=== PATIENT | female | born 2000 | race Caucasian/White ===

== ENCOUNTER 2024-03-05 03:13 | Emergency (ER) | payer OTHER, BC, SELFPAY ==
[2024-03-05 03:14] VITALS: BP 105/77; PULSE 71; RESP 16; TEMP 36.4; O2SAT 100; BMI 22.5
--- NOTE | 2024-03-05 04:07 | ED.VIS.FEGU ---
HPI HPI - Female History of Present Illness Chief Complaint: Vag Bleeding Informant: patient Narrative Narrative: Patient is a G0, P0 23-year-old female with past medical history of bipolar disorder. She states that on Tuesday she had rough sex. She states that on Tuesday she then noticed a small amount of vaginal bleeding but reports it was not time for her menstrual cycle. She denies any discharge or concern for STD but reports that she had concerned that a condom may have been stuck up there. She states that Tuesday night into Tuesday morning she was able to remove the condom but then after doing so there was an increase in bleeding and so she presents for evaluation. Patient denies any history of bleeding disorder or blood thinner use [facility] Medical History (Updated 03/06/24 @ 22:[address] Alli Tomas, DO) Bipolar II disorder Home Medications ?Medication ?Instructions ?Recorded ?Last Taken ?Type lamotrigine 25 mg tablet (Lamictal) 25 mg PO DAILY 03/05/24 Unknown History Allergy/AdvReac Type Severity Reaction Status Date / Time No Known Allergies Allergy Verified 03/05/24 19:25 Social History Smoking Status: Current some day smoker tobacco type: e-cigarettes ROS ROS ED Constitutional Constitutional ED: Denies chills or fever(s) ENT ENT ED: Denies sore throat Cardiovascular Cardiovascular: Denies chest pain Respiratory/Chest Respiratory/Chest: Denies cough or dyspnea Gastrointestinal Gastrointestinal: Denies abdominal pain, diarrhea, nausea or vomiting Genitourinary Genitourinary ED: Reports other Details: Positive vaginal bleeding ; Denies dysuria or urinary frequency Musculoskeletal Musculoskeletal: Denies myalgias Integumentary Denies rash Neurologic Neurologic: Denies headache(s) Hematologic/Lymphatic Hematologic/Lymphatic: Denies easy bleeding or easy bruising EXAM Physical Exam Const Vital Signs: 03/05/24 03:14 Temperature 97.6 F L Temperature Source Oral Pulse Rate 71 Respiratory Rate 16 Blood Pressure 105/77 Blood Pressure Mean 86 Pulse Ox 100 Positive well nourished and well developed General Appearance ED: well developed; Negative for pallor HEENT HEENT Narrative: Normocephalic atraumatic Eyes PERRL and EOMs intact bilaterally General Eye ED: Negative for pale conjunctiva Neck supple Resp normal respiratory effort and clear to auscultation bilaterally Cardio regular rate and regular rhythm GI normal to inspection, nondistended, normoactive bowel sounds, soft to palpation, non-tender, non-distended and no masses Auscultation: normoactive bowel sounds Palpation: soft Narrative: Normal external vaginal tissue. No signs of a labial hematoma or laceration. Speculum exam reveals a scant amount of dark red blood in the vaginal vault less than half a shot glass full. There is no retained foreign body. No cervical laceration. Cervical os is closed. No adnexal masses or tenderness noted. Extremity normal to inspection and full ROM Neuro oriented x3, CN's II-XII intact bilaterally and no sensory deficits noted Sensorium / Orientation: alert Motor Exam: strength 5/5 throughout Psych mental status grossly normal Skin no rashes or lesions noted Skin Narrative: Capillary refill is less than 3 seconds General Skin Exam: Negative for jaundice or pallor MDM MDM MDM Narrative Medical decision making narrative: Patient presented to the ER with stable vitals. She denied any history of bleeding disorder or blood thinner use. She states that the bleeding began roughly 12 hours to 1 day after her sexual activity. There is concern for potential labial hematoma labial laceration cervical laceration or potential infection due to retained foreign body. The patient states that she was able to remove the condom and that it had only been in there for roughly 24 hours. On exam I was able to confirm that there is no retained foreign body and without fever or discharge concern for infection is low and I do not feel there is need for workup regarding this. We did discuss potential Plan B administration as it appears the sexual prophylaxis failed. Patient states she has low concern for this and does not want treatment. She also denies any concern for STD and is not want checked for this. As she is not having profuse bleeding she is low concern for or infection and there is no signs of cervical or vaginal laceration I do not feel there is need for further workup and patient is otherwise safe for discharge. History & Record Review Discussion w/independent historian: Patient Discharge Plan Triage Chief Complaint: Vag Bleeding ED Provider: Alli Tomas Dx/Rx/DC Orders Clinical Impression: DUB (dysfunctional uterine bleeding), Bipolar disorder Instructions: ED Dysfunctional Uterine Bleeding Prescriptions: No Action lamotrigine [Lamictal] 25 mg tablet 25 mg PO DAILY Primary Care Provider: Care Physician,No Primary Referrals: Care Physician,No Primary [Primary Care Provider] - Activity Restrictions/Additional Instructions: Please follow-up with SOIL FIELD TECHNICIAN for repeat evaluation and return to the ER should you have any further concerns Print Language: Swedish Disposition Disposition: Home, Self Care Discharge Date/Time: 03/05/24 04:09
[2024-03-05 04:08] VITALS: BP 101/52; PULSE 73; RESP 16; TEMP 36.5; O2SAT 99
== END 2024-03-05 04:09 | disposition home or self-care (01) ==
PROVIDERS: Emergency Provider Emergency Medicine; Visit Provider Emergency Medicine
DX: N93.8 Other specified abnormal uterine and vaginal bleeding (principal); F31.9 Bipolar disorder, unspecified; Z79.899 Other long term (current) drug therapy; F17.290 Nicotine dependence, other tobacco product, uncomplicated
CPT/HCPCS: 99282

== ENCOUNTER 2024-03-05 19:19 | Emergency (ER) | payer OTHER, BC, SELFPAY ==
[2024-03-05 19:21] VITALS: BP 117/74; PULSE 84; RESP 16; TEMP 36.8; O2SAT 94; BMI 20.9
--- NOTE | 2024-03-05 22:16 | ED.RN ---
Pt and her friend has approached the triage desk multiple times to ask where pt is in line to be seen. This RN has explained multiple times that pt's are seen based on acuity/severity of symptoms and an approximate place in line is given each time. Pt begins to stand at the desk area watching as pt's are checking in and being called back. Pt's friend began to yell asking is she going to be seen!!!! This RN again explained the process of being seen based on acuity. Pt's friend interrupts this RN as explanation is being provided again and puts her hand in this RN's face and storms away. Pt and her friend gather their belongings and LWBS.
== END 2024-03-05 22:15 | disposition left against medical advice (07) ==
LOC: ED 22:30
DX: N93.9 Abnormal uterine and vaginal bleeding, unspecified (principal)

== ENCOUNTER 2024-03-07 11:21 | Emergency (ER) | payer OTHER, BC, SELFPAY ==
[2024-03-07 11:22] VITALS: BP 123/68; PULSE 87; RESP 16; TEMP 36.2; O2SAT 98; BMI 21.2
[2024-03-07 13:28] VITALS: BP 115/74; PULSE 74; RESP 16; O2SAT 100
--- NOTE | 2024-03-07 13:46 | RAD_ITS ---
STUDY: X-RAY CHEST REASON FOR EXAM: Female, 23 years old. Chest pain TECHNIQUE: Single AP portable view of the chest. COMPARISON: None. FINDINGS: EKG electrodes are seen. The lungs are clear and expanded. There is no demonstrated pleural abnormality. Normal size heart. Normal mediastinum and gianna. Normal visualized pulmonary arteries. Normal visualized aortic arch and descending thoracic aorta. Normal visualized thoracic spine. Normal visualized ribs, clavicles, and shoulders. There is no demonstrated abnormality of the visualized soft tissue structures of the upper abdomen. RAD/Chest 1 View (Portable) IMPRESSION: Normal x-ray examination of the chest. Electronically Signed: Theron Saul MD at 14:01 EST ,
--- NOTE | 2024-03-07 13:47 | EKG12_ITS ---
Test Reason : CP Blood Pressure : */* mmHG Vent. Rate : 81 BPM Atrial Rate : 81 BPM P-R Int : 156 ms QRS Dur : 92 ms QT Int : 364 ms P-R-T Axes : 67 80 54 degrees QTcB Int : 422 ms Normal sinus rhythm Normal ECG Confirmed by LALI CURTIS, WILI ([id number]), purchase request editor MALIK PORRAS ([id number]) on 03/14/2024 2:10:45 P M Referred By: Confirmed By: WILI ESCALERA MD
--- NOTE | 2024-03-07 13:48 | EDS_ITS ---
HPI HPI - Female History of Present Illness Chief Complaint: Vag Bleeding Informant: patient Narrative Narrative: 23-year-old female presenting to the emergency room with a primary chief complaint of vaginal bleeding but also skin discoloration chest pain fatigue diarrhea. Patient states that she was recently seen in the emergency department and then by COOLER SERVICE SUPERVISOR for vaginal bleeding. She notes that a few months ago she had 3 periods in 1 month. Typically she is very irregular. She menstruated in the end of January and again started several days ago. This started after she had sexual intercourse neurovascular found out at a later. She had been seen by COOLER SERVICE SUPERVISOR through the [facility] and states that she had a negative pelvic examination. She states that she continues to have bleeding. She states that she feels generally fatigued. She had been taking NyQuil, DayQuil few weeks ago for a cold. She has been experiencing some diarrhea upper abdominal discomfort. No reported fever recently. She states that she called her COOLER SERVICE SUPERVISOR and they recommended that she come back to emergency for blood work. She notes that she had an EKG over the summertime with her primary care doctor that was not normal but is not sure exactly what was wrong as she could not go back due to financial reasons. She is unsure if she is passing blood in the urine or vaginally. [facility] Medical History Bipolar II disorder Home Medications ?Medication ?Instructions ?Recorded ?Last Taken ?Type lamotrigine 25 mg tablet (Lamictal) 25 mg PO DAILY 03/05/24 Unknown History Allergy/AdvReac Type Severity Reaction Status Date / Time No Known Allergies Allergy Verified 03/07/24 11:25 Social History Smoking Status: Current some day smoker tobacco type: e-cigarettes ROS ROS ED Constitutional Constitutional ED: Reports other Details: Fatigue ; Denies chills, fever(s) or weight loss Eyes Eyes: Denies change in vision or diplopia ENT ENT ED: Denies ear pain, rhinorrhea or sore throat Cardiovascular Cardiovascular: Reports chest pain; Denies orthopnea, palpitations or racing heartbeat Respiratory/Chest Respiratory/Chest: Denies cough, dyspnea or orthopnea Gastrointestinal Gastrointestinal: Reports abdominal pain and diarrhea; Denies nausea or vomiting Genitourinary Genitourinary ED: Reports hematuria and other Details: Vaginal bleeding ; Denies dysuria or urinary frequency Musculoskeletal Musculoskeletal: Denies arthralgias or myalgias Integumentary Reports other Details: Patient reports yellowish skin ; Denies abscess or rash Neurologic Neurologic: Denies headache(s) or weakness Psychiatric Psychiatric: Denies anxiety, depression, suicidal ideation or suicidal thoughts Endocrine Endocrinology: Denies polydipsia, polyphagia or polyuria Allergic/Immunologic Allergic/Immunologic ED: Denies mouth swelling, tongue swelling or urticaria EXAM Physical Exam Const Vital Signs: 03/07/24 11:22 03/07/24 13:28 03/07/24 15:00 Temperature 97.2 F L Temperature Source Temporal Pulse Rate 87 74 79 Respiratory Rate 16 16 16 Blood Pressure 123/68 H 115/74 115/74 Blood Pressure Mean 86 87 87 Pulse Ox 98 100 100 Oxygen Delivery Method Room Air Room Air Room Air 03/07/24 16:51 Temperature 97.8 F Temperature Source Pulse Rate 72 Respiratory Rate 18 Blood Pressure 116/72 Blood Pressure Mean 86 Pulse Ox 99 Oxygen Delivery Method Positive well nourished and well developed General Appearance ED: well developed and NAD HEENT Reports normocephalic, head/scalp atraumatic and moist mucous membranes Eyes PERRL and EOMs intact bilaterally General Eye ED: Negative for pale conjunctiva or scleral icterus Neck no lymphadenopathy, supple and no JVD Resp normal respiratory effort and clear to auscultation bilaterally Cardio regular rate, regular rhythm and no murmurs GI normal to inspection, nondistended, normoactive bowel sounds and non-tender Auscultation: normoactive bowel sounds Palpation: soft; Negative for tender, guarding, rigid, hepatomegaly or splenomegaly Back/Spine no CVA tenderness and normal ROM Extremity normal to inspection General Extremety ED: Negative for edema General Extremity: Negative for edema Neuro oriented x3 and CN's II-XII intact bilaterally Sensorium / Orientation: alert Motor Exam: strength 5/5 throughout Psych mental status grossly normal Mood & Affect: Negative for depressed or tearful Skin no rashes or lesions noted and no wounds MDM MDM MDM Narrative Medical decision making narrative: Differential diagnosis includes anemia liver dysfunction acute coronary syndrome pericarditis myocarditis hematuria causes like ureterolithiasis UTI Cath urine specimen was normal. Hemoglobin is 11.2 with normal platelet count and white count. MCV is 90.7. Normal coags. No LFT dysfunction test is negative. EKG is normal sinus rhythm my independent interpretation of the chest x-ray is no acute process normal mediastinal silhouette. Clinically I believe the patient to be stable. I do not have an old hemoglobin to compare to I do not believe that she is in need of a transfusion today. She is not tachycardic or hypotensive. I would recommend the patient follow-up with gynecology. History & Record Review Discussion w/independent historian: Patient Lab Data Attestation: I reviewed the patient's lab results. Labs: Laboratory Results - last 24 hr 03/07/24 03/07/24 13:26 15:14 WBC 9.7 RBC 3.78 L Hgb 11.2 L Hct 34.3 L MCV 90.7 MCH 29.6 MCHC 32.7 RDW Std Deviation 47.8 H RDW Coeff of Lennox 14.4 Plt Count 292 MPV 10.4 Immature Gran % (Auto) 0.300 Neut % (Auto) 76.1 H Lymph % (Auto) 8.9 L Gila % (Auto) 12.8 H Eos % (Auto) 1.2 Baso % (Auto) 0.7 Absolute Neuts (auto) 7.4 Absolute Lymphs (auto) 0.86 Nucleated RBC % 0 PT 14.2 INR 1.1 APTT 28.5 Sodium 141 Potassium 3.8 Chloride 109 H Carbon Dioxide 28.0 Anion Gap 4 L BUN 8 Creatinine 0.69 Estim Creat Clear Calc 124.79 Est GFR (MDRD) Af Amer 138 Est GFR (MDRD) Non-Af 114 BUN/Creatinine Ratio 11.6 Glucose 63 L Calcium 8.8 Total Bilirubin 0.30 Direct Bilirubin 0.14 AST 13 L ALT 18 Alkaline Phosphatase 65 Troponin I High Sens < 3 L Total Protein 6.9 Albumin 3.8 Globulin 3.1 Serum , Qual NEGATIVE Urine Color Yellow Urine Clarity Clear Urine pH 7.0 Ur Specific [place] 1.010 Urine Protein Negative Urine Glucose (UA) Normal Urine Ketones Negative Urine Occult Blood Negative Urine Nitrite Negative Urine Bilirubin Negative Urine Urobilinogen Normal Ur Leukocyte Esterase Negative Urine RBC 0 SEEN Urine WBC 0 SEEN Ur Squamous Epith Cells 0 SEEN Urine Bacteria 0 SEEN Urine Mucus 0 SEEN Radiography Diagnostic Testing: Clinical Impression(s) from Imaging Studies Chest X-Ray 03/07/24 13:46 IMPRESSION: Normal x-ray examination of the chest. Electronically Signed: Theron Saul MD at 14:01 EST , EKG Initial EKG: Attestation: I personally reviewed and interpreted this EKG as follows: Comments: Normal sinus rhythm ventricular rate of 81 bpm. Discharge Plan Triage Chief Complaint: Vag Bleeding ED Provider: Miles Gavin Dx/Rx/DC Orders Clinical Impression: Chest pain, DUB (dysfunctional uterine bleeding) Instructions: ED Chest Pain, Noncardiac, ED Dysfunctional Uterine Bleeding Prescriptions: No Action lamotrigine [Lamictal] 25 mg tablet 25 mg PO DAILY Primary Care Provider: Care Physician,No Primary Referrals: Brittney Sawyer MD [Med Staff - Active Staff] - As soon as possible Josefina Shepherd NP, INTERNAL MEDICINE NURSE PRACTITIONER-C [Non-Staff] - Print Language: Angolan Disposition Disposition: Home, Self Care Discharge Date/Time: 03/07/24 16:55
[2024-03-07 14:04] LABS: Absolute Lymphocyte Count 0.86 X10^3/uL (0.83-4.51); Absolute Neutrophil Count 7.4 X10^3/uL (2.0-7.7); Basophil# 0.07 X10^3/uL; Basophil% 0.7 % (0-1); Eosinophil# 0.12 X10^3/uL; Eosinophils% 1.2 % (0-5); Hematocrit 34.3 % (37-47); Hemoglobin 11.2 g/dL (12.0-15.0); Lymphocyte # 0.86 X10^3/ul (0.83-4.51); Lymphocyte % 8.9 % (19-41); Mean Corp Hgb Conc 32.7 g/dL (32-36); Mean Corpuscular Hgb 29.6 pg (27.0-32.0); Mean Corpuscular Volume 90.7 fL (81-99); Mean Platelet Vol. 10.4 fl (6.2-12.0); Monocyte# 1.24 X10^3/uL; Monocyte% 12.8 % (0-10); NRBC Flagged by Analyzer 0 % (0-5); Neutrophil # 7.36 X10^3/uL (2.7-7.7); Neutrophil % 76.1 % (47-70); Platelet Count 292 K/mm3 (150-450); RBC Distribution Width CV 14.4 % (11.6-14.6); RBC Distribution Width SD 47.8 fl (35.1-43.9); Red Blood Count 3.78 M/mm3 (4.2-5.4); White Blood Count 9.7 K/mm3 (4.4-11.0)
[2024-03-07 14:09] LABS: International Normalized Ratio 1.1; Prothrombin Time (Protime)PT. 14.2 SECONDS (11.7-14.9)
[2024-03-07 14:10] LABS: Partial Thromboplast Time 28.5 Seconds (24.1-36.2)
[2024-03-07 14:52] LABS: AST(SGOT) 13 U/L (15-37); Alanine Aminotransfer ALT/SGPT 18 U/L (13-56); Albumin, Serum 3.8 g/dL (3.2-5.0); Alkaline Phosphatase 65 U/L (45-117); Anion Gap 4 (5-15); BUN 8 mg/dL (7-18); BUN/Creat Ratio 11.6 RATIO (10-20); Bilirubin, Direct 0.14 mg/dL (0.00-0.30); Calcium,Total 8.8 mg/dL (8.5-10.1); Chloride 109 mmol/L (98-107); Creatinine, Serum 0.69 mg/dL (0.55-1.02); EST Glomerular Filtration Rate 114 mL/min (>60); Est Glom Filt Rate - Afr Amer 138 mL/min (>60); Estimated Creatinine Clearance 124.79 ml/min; Globulin 3.1 g/dL (2.2-4.2); Glucose 63 mg/dL (74-106); Potassium 3.8 mmol/L (3.5-5.1); Protein, Total 6.9 g/dL (6.4-8.2); Sodium Level 141 mmol/L (136-145); Troponin-I HS < 3 pg/mL (3.0-54.0)
[2024-03-07 14:57] LABS: Internal QC Validated? YES +Cl - CLEAR BKGD; Pregnancy, Serum, hCG Quali. NEGATIVE Negative
[2024-03-07 15:00] VITALS: BP 115/74; PULSE 79; RESP 16; O2SAT 100
[2024-03-07 15:19] LABS: Bacteria 0 SEEN /hpf (None Seen); Mucous, Urine 0 SEEN /hpf (<or=2+); Red Blood Cells-Urine 0 SEEN /hpf (0-5); Squamous Epithelial Cells - UA 0 SEEN /hpf (5-10); White Blood Cells 0 SEEN /hpf (0-5)
[2024-03-07 15:24] LABS: Color, Urine Yellow (Yellow); Glucose, Dipstick Normal (Normal); Ketone-Dipstick Negative (Negative); Leukocyte Esterase-Dipstick Negative /ul (Negative); Nitrite-Dipstick Negative (Negative); Occult Blood-Urine Negative /ul (Negative); Protein-Dipstick Negative (Negative); Urine Bilirubin Dipstick Negative (Negative); Urine Clarity Clear (Clear); Urine Urobilinogen Normal (Normal)
[2024-03-07 16:51] VITALS: BP 116/72; PULSE 72; RESP 18; TEMP 36.6; O2SAT 99
== END 2024-03-07 16:55 | disposition home or self-care (01) ==
PROVIDERS: Emergency Provider Emergency Medicine; Visit Provider Emergency Medicine
DX: R07.9 Chest pain, unspecified (principal); N93.8 Other specified abnormal uterine and vaginal bleeding; F17.290 Nicotine dependence, other tobacco product, uncomplicated
CPT/HCPCS: 71045; 80048; 80076; 81001; 84484; 84703; 85025; 85610; 85730; 93005; 99285; P9612; A4216

== ENCOUNTER 2024-04-22 01:13 | Emergency (ER) | payer OTHER, BC, SELFPAY ==
[2024-04-22 01:14] VITALS: BP 103/67; PULSE 82; RESP 18; TEMP 35.1; O2SAT 100; BMI 23.3
--- NOTE | 2024-04-22 01:48 | EX.ED.SAOD ---
HPI History of Present Illness Chief Complaint: ETOH Intox Informant: friend Limited: intoxicated Narrative Narrative: Patient is a 24-year-old female with reported history of bipolar disorder presenting for alcohol intoxication. Patient reportedly drank liquor tonight. She is intoxicated and became unsteady. Did report of falls. Friends were with her. They took her to [facility] and because she could not ambulate and her level of intoxication she was brought to the emergency room. Friend at the bedside states that she was in her normal state of health and behavior before starting drinking tonight. No report of any trauma or other concerns. [facility] Medical History Bipolar II disorder Home Medications ?Medication ?Instructions ?Recorded ?Last Taken ?Type lamotrigine 25 mg tablet (Lamictal) 25 mg PO DAILY 03/05/24 Unknown History Allergy/AdvReac Type Severity Reaction Status Date / Time No Known Allergies Allergy Verified 03/07/24 11:25 Social History Smoking Status: Current some day smoker tobacco type: e-cigarettes ROS ROS ED Review of Systems ROS Unobtainable: other Details: Alcohol intoxication EXAM Physical Exam Const Vital Signs: 04/22/24 01:14 04/22/24 03:13 04/22/24 05:00 Temperature 95.2 F L Temperature Source Temporal Pulse Rate 82 64 72 Respiratory Rate 18 24 H 16 Blood Pressure 103/67 81/50 L 88/61 L Blood Pressure Mean 79 60 70 Pulse Ox 100 97 98 Oxygen Delivery Method Room Air Room Air Room Air 04/22/24 07:24 Temperature Temperature Source Pulse Rate 80 Respiratory Rate 16 Blood Pressure 101/54 L Blood Pressure Mean 69 Pulse Ox 98 Oxygen Delivery Method Room Air Positive well nourished and well developed Constitutional Narrative: Patient retching General Appearance ED: well developed HEENT Reports TM's clear and moist mucous membranes atraumatic Tympanic Membrane ED: Yes TM's clear Eyes PERRL and EOMs intact bilaterally Eyes Narrative: Pupils mildly dilatated Neck supple Chest Wall inspection of chest normal and palpation of chest normal Resp normal respiratory effort and clear to auscultation bilaterally Cardio regular rate and regular rhythm GI soft to palpation, non-tender and non-distended Neuro Neuro Narrative: Obtunded, spontaneous movement of extremities. Skin Lesions: no lesions Rashes: no rashes MDM MDM MDM Narrative Medical decision making narrative: Patient evaluated for altered mental status with associated alcohol intoxication. Patient is obtunded and significantly intoxicated the emergency room. She has no signs of trauma. She has a good informant with her who he does report a history of drinking liquor tonight. Patient will be monitored on telemetry until clinically sober. Do not think she requires further imaging or lab work. IV fluids would not help metabolize alcohol and EtOH level will not foreign exchange services manager. Patient reevaluated. She is now ambulatory but still slightly unsteady. She is improving. Will continue to monitor and discharge once more clinically sober. Discharge Plan Triage Chief Complaint: ETOH Intox ED Provider: Bisi Obando Dx/Rx/DC Orders Clinical Impression: Alcohol intoxication Instructions: ED Alcohol Intoxication Prescriptions: No Action lamotrigine [Lamictal] 25 mg tablet 25 mg PO DAILY Primary Care Provider: Care Physician,No Primary Referrals: Care Physician,No Primary [Primary Care Provider] - Linn Gomes, HIGH SCHOOL BAND TEACHER-C [facility] - As Needed Activity Restrictions/Additional Instructions: Please avoid excessive drinking/binge drinking. Please follow-up with your primary care doctor. Do not have any become referral for the [facility]. You may also follow-up as needed with [facility]. Print Language: Czech Disposition Disposition: Home, Self Care
[2024-04-22 03:13] VITALS: BP 81/50; PULSE 64; RESP 24; O2SAT 97
[2024-04-22 05:00] VITALS: BP 88/61; PULSE 72; RESP 16; O2SAT 98
[2024-04-22 07:24] VITALS: BP 101/54; PULSE 80; RESP 16; O2SAT 98
[2024-04-22 08:15] VITALS: BP 114/78; PULSE 98; RESP 18; TEMP 37.1; O2SAT 100
== END 2024-04-22 08:16 | disposition home or self-care (01) ==
PROVIDERS: Emergency Provider Emergency Medicine; Visit Provider Emergency Medicine
DX: F10.129 Alcohol abuse with intoxication, unspecified (principal); F31.81 Bipolar II disorder; Z79.899 Other long term (current) drug therapy; F17.290 Nicotine dependence, other tobacco product, uncomplicated
CPT/HCPCS: 99282